=== PATIENT | female | born 1970 | race Asian ===

== ENCOUNTER 2016-07-21 03:25 | Emergency (ER) | payer OTHER ==
[~2016-07-21] VITALS: Ht 149.9 cm; Wt 77.1 kg
[2016-07-21 03:30] VITALS: BP 156/99; PULSE 101; RESP 26; TEMP 97.4; O2SAT 97
--- NOTE | 2016-07-21 03:30 | NUR ---
Patient to ER bed 6 to gown for evaluation. Side rails up. Report given to Hiral CASTILLO.
--- NOTE | 2016-07-21 03:35 | NUR ---
Patient AAO x4, sitting in bed c/o shortness of breath and wheezing. Slight wheezes auscultated at left lobes. Denies chest pain. Patient states she has hx of asthma and forgot her rescue inhaler this morning. No acute distress noted. Will continue to monitor.
[2016-07-21] MEDS ORDERED: ALBUTEROL SULFATE 0.083% 2.5 MG/3 ML VIAL.NEB INH ONE ×2 (03:39→04:00)
[2016-07-21] MEDS ORDERED: IPRATROPIUM BROM 0.5 MG/2.5 ML VIAL.NEB (ATROVENT) INH ONE ×2 (03:39→04:00)
--- NOTE | 2016-07-21 03:45 | NUR ---
RAVINDRA Sam at bedside examining patient.
[2016-07-21 04:42] VITALS: BP 145/87; PULSE 95; RESP 20; TEMP 97.6; O2SAT 99
--- NOTE | 2016-07-21 04:42 | NUR ---
Patient given written and verbal discharge instructions and verbalizes understanding. ER MD discussed with patient the results and treatment provided. Patient in stable condition. ID arm band removed. Rx of Ventolin inh given. Patient educated on pain management and to follow up with PMD. Pain Scale 0/10. Opportunity for questions provided and answered.
== END 2016-07-21 04:42 | disposition home or self-care (01) ==
LOC: SED 03:25
DX: J45.901 Unspecified asthma with (acute) exacerbation (principal)
CPT/HCPCS: 94640; 99283

== ENCOUNTER 2019-04-04 02:20 | Emergency (ER) | payer OTHER ==
[~2019-04-04] VITALS: Ht 149.9 cm; Wt 77.1 kg
[2019-04-04 02:25] VITALS: BP_SYST 155
--- NOTE | 2019-04-04 02:25 | NUR ---
Patient triaged and placed in waiting room. VSS and patient appears in no acute distress at this time. Accompanied by her co-worker, awaiting available bed, and MD notified of need for MSE.
--- NOTE | 2019-04-04 03:32 | NUR ---
Pt states that while sitting at her work station, she began to experience dizziness and heaviness to left chest and neck. Pt states that she also felt shakey. Onset 0150. Pt states that she was scared that she was about to pass out. Denies LOC, no fall or head trauma.
--- NOTE | 2019-04-04 03:32 | NUR ---
Placed in room 1 . Placed on vehicle monitor technician, blood pressure machine and pulse oximeter. To gown for exam. Side rails up. Report given to BETSY CASTILLO.
--- NOTE | 2019-04-04 03:50 | NUR ---
Dr. Delaney at bedside.
[2019-04-04] MEDS ORDERED: NACL 0.9% 1,000 ML IV ONE (05:15)
[2019-04-04 05:26] LABS: BASOPHILS # (AUTO) 0.1 K/uL (0.0-0.2); BASOPHILS % (AUTO) 1.1 % (0.0-2.0); EOSINOPHILS # (AUTO) 0.2 K/uL (0.0-0.4); EOSINOPHILS % (AUTO) 2.8 % (0.0-4.0); HEMATOCRIT 24.8 % (36-48); HEMOGLOBIN 7.7 g/dL (12.0-16.0); LYMPHOCYTES # (AUTO) 2.3 K/uL (1.0-5.5); LYMPHOCYTES % (AUTO) 34.7 % (20.5-51.5); MEAN CORPUSCULAR HEMOGLOBIN 20 pg (27-31); MEAN CORPUSCULAR HGB CONC 31 % (32-36); MEAN CORPUSCULAR VOLUME 64 fL (79.0-98.0); MONOCYTES # (AUTO) 0.5 K/uL (0.0-1.0); MONOCYTES % (AUTO) 8.2 % (1.7-9.3); NEUTROPHILS # (AUTO) 3.5 K/uL (1.8-7.7); NEUTROPHILS % (AUTO) 53.2 % (40.0-70.0); PLATELET COUNT (AUTO) 384 K/uL (130-430); RED BLOOD CELL COUNT(AUTO) 3.88 MIL/uL (4.2-6.2); RED CELL DISTRIBUTION WIDTH 19.1 % (9.0-15.0); WHITE BLOOD COUNT (AUTO) 6.7 K/uL (4.8-10.8)
--- NOTE | 2019-04-04 05:35 | NUR ---
Lab at bedside.
[2019-04-04 05:46] LABS: ALANINE AMINOTRANSFERASE 30 U/L (12-78); ALBUMIN 3.5 g/dL (3.4-4.8); ASPARTATE AMINOTRANSFERASE 24 U/L (10-37); CALCIUM 8.5 mg/dL (8.4-11.0); CHLORIDE 104 mmol/L (98-107); CREATININE 0.59 mg/dL (0.55-1.30); POTASSIUM 3.6 mmol/L (3.5-5.1); SODIUM SERUM 138 mmol/L (136-145); TOTAL BILIRUBIN 0.2 mg/dL (0.0-1.0); UREA NITROGEN, BLOOD 13 mg/dL (8-21)
[2019-04-04 05:55] LABS: BILIRUBIN,URINE NEGATIVE (NEGATIVE); BLOOD, URINE NEGATIVE (NEGATIVE); CLARITY/URINE CLEAR (CLEAR); COLOR,URINE YELLOW (YELLOW); GLUCOSE,URINE NEGATIVE (NEGATIVE); KETONES,URINE NEGATIVE (NEGATIVE); LEUKOCYTE ESTERASE ,URINE TRACE (NEGATIVE); NITRITE, URINE NEGATIVE (NEGATIVE); PROTEIN URINE NEGATIVE (NEGATIVE); UROBILINOGEN,URINE 0.2 (0.2-1.0)
[2019-04-04 05:58] LABS: RBC,URINE 0-3 /HPF (0-3)
[2019-04-04 05:59] LABS: ANION GAP 8 (5-15); GFR AFRICAN AMERICAN 141 mL/min (>90); GLUCOSE 110 mg/dL (70-99)
[2019-04-04 05:59] LABS: BACTERIA,URINE FEW /HPF (None Seen)
[2019-04-04 07:08] VITALS: BP_SYST 134
== END 2019-04-04 07:08 | disposition home or self-care (01) ==
LOC: SED 02:20
DX: D64.9 Anemia, unspecified (principal); E86.0 Dehydration; R42 Dizziness and giddiness
CPT/HCPCS: 36415; 80053; 81000; 81025; 82962; 84484; 85025; 93005; 96360; 99284; J7030

== ENCOUNTER 2021-11-01 08:00 | Outpatient (CLI) | payer OTHER ==
[~2021-11-01] VITALS: Ht 149.9 cm; Wt 77.1 kg
[2021-11-02] MEDS ORDERED: CEFAZOLIN SOD 2 GM in D5W 50 ML IV ONE (07:00)
== END 2021-11-01 15:00 | disposition home or self-care (01) ==
LOC: SLB 08:00 → EDSTATUS 11-02 07:30
PROVIDERS: ATTEND Otolaryngology
DX: Z01.812 Encounter for preprocedural laboratory examination (principal); R22.1 Localized swelling, mass and lump, neck; Z20.822 Contact with and (suspected) exposure to COVID-19
CPT/HCPCS: 36415; U0003; J0690; J7060

== ENCOUNTER 2022-02-17 06:50 | Day surgery (SDC) | payer OTHER ==
[~2022-02-17] VITALS: Ht 149.9 cm; Wt 77.1 kg
[2022-02-17] MEDS ORDERED: CEFAZOLIN 2 GM IVPB PREMIX 50 ML IV ONE (07:00)
[2022-02-17 07:45] LABS: HCG,QUAL RESULT NEGATIVE (NEGATIVE)
[2022-02-17] MEDS ORDERED: METOCLOPRAMIDE HCL 10 MG/2 ML VIAL IVP PRN (11:30)
[2022-02-17] MEDS ORDERED: IBUPROFEN 600 MG TABLET PO ONE (11:30)
[2022-02-17] MEDS ORDERED: MIDAZOLAM HCL 5 MG/5 ML VIAL IVP PRN (11:30)
[2022-02-17] MEDS ORDERED: MEPERIDINE HCL/PF 25 MG/ML DISP.SYRIN IVP PRN (11:30)
[2022-02-17] MEDS ORDERED: MORPHINE 4 MG INJ. 4 MG/ML VIAL IVP PRN (11:30)
[2022-02-17] MEDS ORDERED: BUPIVACAINE /PF 0.25% 30 ML VIAL INJ ONE (14:10)
[2022-02-17] MEDS ORDERED: BACITRACIN 1 GM OINT TP ONE (14:10)
[2022-02-17] MEDS ORDERED: PROPOFOL 200MG/ 20ML VIAL (DIPRIVAN) IV ONE (14:10)
[2022-02-17] MEDS ORDERED: KETOROLAC TROMETHAMINE 30 MG VIAL ONE (14:10)
[2022-02-17] MEDS ORDERED: SEVOFLURANE 15 MIN GAS INH ONE (14:10)
[2022-02-17] MEDS ORDERED: ONDANSETRON HCL 4 MG/2 ML VIAL ONE (14:10)
[2022-02-17] MEDS ORDERED: LR 1,000 ML IV.SOLN IV ONE (14:10)
[2022-02-17] MEDS ORDERED: LIDOCAINE/EPI 1% 1:100000 20 ML VIAL ONE (14:10)
[2022-02-17] MEDS ORDERED: NS IRRIG SOLN 1000 ML IR ONE (14:10)
[2022-02-17] MEDS ORDERED: HYDROcodone/ACETAMIN 5-325 MG TAB (NORCO/ VICODIN) PO PRN (14:30)
[2022-02-17] MEDS ORDERED: ONDANSETRON 4 MG ODT TAB PO PRN (14:30)
[2022-02-17] MEDS ORDERED: ONDANSETRON HCL 4 MG/2 ML VIAL IVP PRN (14:30)
[2022-02-17] MEDS ORDERED: BENZOCAINE/MENTHOL 1 EACH LOZENGE MM PRN (14:30)
[2022-02-17 17:08] VITALS: BP_SYST 106
== END 2022-02-17 16:30 | disposition home or self-care (01) ==
LOC: SDS 06:50 → SMU 06:51 → SDS 16:30
PROVIDERS: ATTEND Otolaryngology
DX: D17.0 Benign lipomatous neoplasm of skin and subcutaneous tissue of head, face and neck (principal); Z20.822 Contact with and (suspected) exposure to COVID-19
CPT/HCPCS: 36415 ×2; 21554; 82962; 84703; 88305; 87426; U0003; J3490; J0690; J1885; J2405; J2704; J7120; C1782

== ENCOUNTER 2022-07-21 06:37 | Day surgery (SDC) | payer OTHER ==
[~2022-07-21] VITALS: Ht 149.9 cm; Wt 74.8 kg
[2022-07-21] MEDS ORDERED: KETOROLAC TROMETHAMINE 30 MG VIAL IVP PRN (10:00)
[2022-07-21] MEDS ORDERED: HYDROmorphone 1 MG/ML INJ. CARTRIDGE IVP PRN (10:00)
[2022-07-21] MEDS ORDERED: ONDANSETRON HCL 4 MG/2 ML VIAL IVP PRN ×2 (10:00→10:45)
[2022-07-21] MEDS ORDERED: ACETAMINOPHEN 500 MG TABLET PO ONE (10:00)
[2022-07-21] MEDS ORDERED: METOCLOPRAMIDE HCL 10 MG/2 ML VIAL IVP PRN (10:00)
[2022-07-21] MEDS ORDERED: DEXAMETHASONE SOD PHOSPHATE 4 MG/ML VIAL ONE (10:45)
[2022-07-21] MEDS ORDERED: NS IRRIG SOLN 5000 ML IR ONE (10:45)
[2022-07-21] MEDS ORDERED: WATER FOR IRRIGATION,STERILE 1,000 ML IRRIG.SOLN IR ONE (10:45)
[2022-07-21] MEDS ORDERED: ONDANSETRON HCL 4 MG/2 ML VIAL ONE (10:45)
[2022-07-21] MEDS ORDERED: NS IRRIG SOLN 1000 ML IR ONE (10:45)
[2022-07-21] MEDS ORDERED: PROPOFOL 200MG/ 20ML VIAL (DIPRIVAN) IV ONE (10:45)
[2022-07-21] MEDS ORDERED: CEFAZOLIN 1 GM IVPB PREMIX 50 ML IV ONE (10:45)
[2022-07-21] MEDS ORDERED: HYDROcodone/ACETAMIN 5-325 MG TAB (NORCO/ VICODIN) PO PRN (10:45)
[2022-07-21] MEDS ORDERED: SEVOFLURANE 15 MIN GAS INH ONE (10:45)
[2022-07-21] MEDS ORDERED: LR 1,000 ML IV.SOLN IV ONE (10:45)
[2022-07-21] MEDS ORDERED: OXYCODONE/ACETAMINOPHEN 5-325 TABLET PO PRN ×2 (10:45)
[2022-07-21 11:33] VITALS: BP_SYST 125
== END 2022-07-21 16:00 | disposition home or self-care (01) ==
LOC: SDS 06:37 → SMU 06:39 → SDS 16:00
PROVIDERS: ATTEND Specialist
DX: N92.1 Excessive and frequent menstruation with irregular cycle (principal); R93.89 Abnormal findings on diagnostic imaging of other specified body structures; N88.2 Stricture and stenosis of cervix uteri; D25.1 Intramural leiomyoma of uterus; J45.909 Unspecified asthma, uncomplicated; E78.5 Hyperlipidemia, unspecified; D64.9 Anemia, unspecified; E66.9 Obesity, unspecified; Z68.33 Body mass index [BMI] 33.0-33.9, adult; Z20.822 Contact with and (suspected) exposure to COVID-19; Z79.899 Other long term (current) drug therapy
CPT/HCPCS: 87081; 58558; 82962; 36415; 88305; 87426; J0690; J1100; J2405; J2704; J7120; C1819

== ENCOUNTER 2022-08-09 10:47 | Emergency (ER) | payer OTHER ==
[~2022-08-09] VITALS: Ht 149.9 cm; Wt 74.8 kg
[2022-08-09 10:56] VITALS: BP_SYST 139
--- NOTE | 2022-08-09 11:52 | NUR ---
PT BIB SELF AWAKE AND ALERT AOX4. NO SOB OR DISTRESS. PT C/O CHEST PAIN, L SIDED FACE NUMBNESS, L HAND NUMBNESS, AND FEELING SHAKY. PT DENIES N/N. PT STATES PAIN TO CHEST 3/10. PT HAS HX OF ANEMIA.
--- NOTE | 2022-08-09 11:55 | NUR ---
MD DR DELGADO AT BEDSIDE
[2022-08-09] MEDS ORDERED: LORazepam 1 MG TABLET PO ONE ×2 (12:00→12:45)
--- NOTE | 2022-08-09 12:17 | NUR ---
PT TAKEN TO CT
[2022-08-09] MEDS ORDERED: LORA-258 PO (12:40)
[2022-08-09 12:49] VITALS: BP_SYST 145
--- NOTE | 2022-08-09 12:50 | NUR ---
Patient given written and verbal discharge instructions and verbalizes understanding. ER MD DR DELGADO discussed with patient the results and treatment provided. Patient in stable condition. ID arm band removed. Rx of ATIVAN given. Patient educated on pain management and to follow up with PMD. Pain Scale 3/10. Opportunity for questions provided and answered. Medication side effect fact sheet provided.
== END 2022-08-09 12:50 | disposition home or self-care (01) ==
LOC: SED 10:47
DX: R20.2 Paresthesia of skin (principal); Z88.6 Allergy status to analgesic agent; Z79.899 Other long term (current) drug therapy
CPT/HCPCS: 70450-TC; 76376; 93005; 99284